=== PATIENT | female | born 1965 | race Caucasian/White ===

== ENCOUNTER 2016-08-03 08:07 | Day surgery (SDC) | payer OTHER ==
[~2016-08-03] VITALS: Ht 180.3 cm; Wt 76.6 kg
[2016-08-03 08:53] VITALS: Ht 180.3 cm; Wt 76.6 kg
[2016-08-03] MEDS ORDERED: VIT D (09:00)
[2016-08-03] MEDS ORDERED: THYR30TA PO (09:00)
[2016-08-03] MEDS ORDERED: BUPR150T6 PO (09:00)
--- NOTE | 2016-08-03 10:03 | GILP ---
DATE OF PROCEDURE: 08/03/2016 PROCEDURE: Screening colonoscopy, rule out colon polyps. SURGEON: Silvestre Matt MD POSTOPERATIVE DIAGNOSES: 1. Normal colonoscopy. No polyps, no carcinoma noted. 2. Minimal external hemorrhoids were noted. DESCRIPTION OF PROCEDURE: After the informed written consent was obtained, the patient was asked to lie on the left lateral side, 3 mg Versed and 100 mcg of fentanyl were given as intravenous anesthe mary. When the patient became somnolent, the Olympus video colonoscope was introduced into the rectum and scope was advanced all the way to the cecum. The entire colon appeared perfectly normal. No polyps , no carcinoma, no diverticulosis noted. The appendiceal opening and the ileocecal valve were ident ified. Pictures were taken and scope was withdrawn. On the way out, minimal external hemorrhoids w ere noted. On retroflexion, no internal hemorrhoids noted and the procedure was terminated. PLAN: Recommend repeat colonoscopy in 10 years. Dictated By: SILVESTRE MATT MD NC/NTS Conf#: [id number] DID#: [id number] CC: NINO PARNELL MD; SILVESTRE MATT MD;*EndCC*
[2016-08-03] MEDS ORDERED: FENTAnyl 50 MCG/ML VIAL ONE (10:07)
[2016-08-03] MEDS ORDERED: MIDAZOLAM 1 MG/ML 2 ML INJ ONE ×2 (10:07)
== END 2016-08-03 11:08 | disposition home or self-care (01) ==
LOC: GIL 08:07
PROVIDERS: ATTEND Internal Medicine Gastroenterology
DX: Z12.11 Encounter for screening for malignant neoplasm of colon (principal); K64.4 Residual hemorrhoidal skin tags
CPT/HCPCS: 45378; J2250; J3010; Z7610